=== PATIENT | female | born 2000 | race Two or more races ===

== ENCOUNTER 2023-11-03 04:56 | Emergency (ER) | payer SELFPAY ==
[2023-11-03] MEDS: Ondansetron 4 MG/2 ML SDV IVPUSH ONE (05:18)
[2023-11-03] MEDS: Sodium Chloride 0.9% 1,000 ML IV ONE ×2 (05:18→06:02)
[2023-11-03] MEDS: Morphine 4 MG/ML Syringe IVPUSH ONE (05:18)
[2023-11-03] MEDS: Famotidine 20 MG/2 ML SDV IVPUSH ONE (05:18)
[2023-11-03] MEDS: Sodium Chloride 0.9% 2.5 ML Syringe FLUSH PRN (05:19)
[2023-11-03] MEDS: Sodium Chloride 0.9% 10 ML Syringe FLUSH PRN (05:19)
[2023-11-03 05:25] LABS: HEMATOCRIT 39.6 % (37.0-47.0); HEMOGLOBIN 13.7 g/dL (12.0-16.0); MEAN CORPUSCULAR HGB CONC 34.6 g/dL (32.0-36.0); MEAN CORPUSCULAR VOLUME 83.9 fL (83.0-99.0); MEAN PLATELET VOLUME 10.2 fL (9.4-12.3); PLATELET COUNT,PLT 383 K/uL (150-400); RED BLOOD CELL COUNT 4.72 M/uL (4.10-5.30); WHITE BLOOD CELL COUNT,WBC 21.33 K/uL (3.9-11.3)
[2023-11-03 05:47] LABS: A/G RATIO 1.2 (0.9-1.6); ALBUMIN 4.5 g/dL (3.4-5.0); BILIRUBIN TOTAL 1.1 mg/dL (0.2-1.0); CALCIUM 9.8 mg/dL (8.5-10.1); CARBON DIOXIDE,CO2 24.4 mmol/L (21.0-32.0); CREATININE 1.1 mg/dL (0.6-1.0); EST CRCL DRUG DOSING (CG) 71.57 mL/min; LYMPHOCYTES ABSOLUTE MAN 2.13 K/uL (1.00-4.80); LYMPHOCYTES PERCENT MAN 10 % (24-44); MAGNESIUM 1.8 mg/dL (1.8-2.4); MONOCYTES ABSOLUTE MAN 1.49 K/uL (0.00-0.80); MONOCYTES PERCENT MAN 7 % (0-8); POTASSIUM,K 3.2 mmol/L (3.5-5.1); PROTEIN TOTAL,TP 8.4 g/dL (6.4-8.2); SEG NEUTROPHILS PERCENT MAN 83 % (41-71)
[2023-11-03 05:56] LABS: LACTIC ACID 2.2 mmol/L (0.4-2.0)
[2023-11-03] MEDS: cefTRIAXone 1 GM in Sodium Chloride 0.9% 50 ML IV ONE (06:03)
[2023-11-03 06:04] LABS: CORONAVIRUS COVID-19 NAA POSITIVE (NEGATIVE); INFLUENZA A NAA NEGATIVE (NEGATIVE); INFLUENZA B NAA NEGATIVE (NEGATIVE)
[2023-11-03 06:57] LABS: APPEARANCE,URINE HAZY; BILIRUBIN,URINE NEGATIVE (NEGATIVE); COLOR,URINE YELLOW; GLUCOSE,URINE NEGATIVE (NEGATIVE); KETONES,URINE >=80 mg/dL (NEGATIVE); LEUKOCYTE ESTERASE,URINE NEGATIVE (NEGATIVE); NITRITE,URINE NEGATIVE (NEGATIVE); OCCULT BLOOD,URINE NEGATIVE (NEGATIVE); PROTEIN,URINE NEGATIVE (NEGATIVE); UROBILINOGEN,URINE 0.2 EU/dL (<2.0)
[2023-11-03] MEDS: Magnesium Sulfate/Water 2 GM in Premix Bag 1 BAG IV ONE (07:11)
== END 2023-11-03 08:13 | disposition home or self-care (01) ==
LOC: MW.ED 04:56
DX: O98.511 Other viral diseases complicating pregnancy, first trimester (principal); U07.1 COVID-19; O21.0 Mild hyperemesis gravidarum; Z3A.01 Less than 8 weeks gestation of pregnancy
CPT/HCPCS: 0240U; 36415; 76801; 80053; 81003; 83605; 83690; 83735; 84702; 84703; 85025; 87040; 93005; 96361; 96365; 96367; 96375; 99284; J0696; J2270; J2405; J3475; J3490; J7030; 93010

== ENCOUNTER 2023-11-18 11:30 | Emergency (ER) | payer SELFPAY ==
[2023-11-18 12:03] LABS: BASOPHILS ABSOLUTE AUTO 0.07 K/uL (0.00-0.20); BASOPHILS PERCENT AUTO 0.4 % (0.0-1.0); EOSINOPHILS ABSOLUTE AUTO 0.02 K/uL (0.00-0.45); EOSINOPHILS PERCENT AUTO 0.1 % (0.0-6.0); HEMATOCRIT 41.5 % (37.0-47.0); IMMATURE GRAN ABSOLUTE AUTO 0.06 K/uL (0.00-0.05); IMMATURE GRAN PERCENT AUTO 0.3 % (0.0-0.4); LYMPHOCYTES ABSOLUTE AUTO 2.13 K/uL (1.00-4.80); LYMPHOCYTES PERCENT AUTO 12.2 % (24.0-44.0); MEAN CORPUSCULAR HEMOGLOBIN 29.5 pg (28.0-32.0); MEAN CORPUSCULAR HGB CONC 36.1 g/dL (32.0-36.0); MEAN CORPUSCULAR VOLUME 81.7 fL (83.0-99.0); MEAN PLATELET VOLUME 10.5 fL (9.4-12.3); MONOCYTES ABSOLUTE AUTO 1.18 K/uL (0.00-0.80); MONOCYTES PERCENT AUTO 6.8 % (0.0-8.0); NEUTROPHILS ABSOLUTE AUTO 13.97 K/uL (1.80-7.70); NEUTROPHILS PERCENT AUTO 80.2 % (41.0-71.0); PLATELET COUNT,PLT 309 K/uL (150-400); RED BLOOD CELL COUNT 5.08 M/uL (4.10-5.30); WHITE BLOOD CELL COUNT,WBC 17.43 K/uL (3.9-11.3)
[2023-11-18] MEDS: Metoclopramide 10 MG/2 ML SDV IVPUSH ONE (12:10)
[2023-11-18] MEDS: Dextrose 5%-0.9% NaCl 1,000 ML IV STA (12:10)
[2023-11-18 12:15] LABS: APPEARANCE,URINE SLT CLOUDY; COLOR,URINE YELLOW; GLUCOSE,URINE NEGATIVE (NEGATIVE); KETONES,URINE >=80 mg/dL (NEGATIVE); LEUKOCYTE ESTERASE,URINE NEGATIVE (NEGATIVE); NITRITE,URINE NEGATIVE (NEGATIVE); OCCULT BLOOD,URINE NEGATIVE (NEGATIVE); PROTEIN,URINE NEGATIVE (NEGATIVE); UROBILINOGEN,URINE 0.2 EU/dL (<2.0)
[2023-11-18 12:21] LABS: BILIRUBIN,URINE SMALL (NEGATIVE)
[2023-11-18 12:26] LABS: ALBUMIN 4.2 g/dL (3.4-5.0); BILIRUBIN TOTAL 0.8 mg/dL (0.2-1.0); CALCIUM 9.7 mg/dL (8.5-10.1); CARBON DIOXIDE,CO2 24.2 mmol/L (21.0-32.0); CREATININE 0.8 mg/dL (0.6-1.0); EST CRCL DRUG DOSING (CG) 98.41 mL/min; POTASSIUM,K 3.7 mmol/L (3.5-5.1); PROTEIN TOTAL,TP 8.2 g/dL (6.4-8.2)
[2023-11-18] MEDS: Dextrose 5%-Lactated Ringers 1,000 ML IV STA (12:56)
== END 2023-11-18 13:59 | disposition home or self-care (01) ==
LOC: MW.ED 11:30
DX: O21.0 Mild hyperemesis gravidarum (principal); Z3A.01 Less than 8 weeks gestation of pregnancy; Z75.8 Other problems related to medical facilities and other health care
CPT/HCPCS: 36415; 80053; 81003; 84702; 84703; 85025; 96361; 96374; 99284; J2765; J7042; J7121

== ENCOUNTER 2024-05-29 01:26 | Inpatient (IN) | payer MEDICAID ==
[2024-05-29] MEDS ORDERED: Ondansetron 4 MG/2 ML SDV IVPUSH PRN (02:19)
[2024-05-29] MEDS ORDERED: Butorphanol 2 MG/ML SDV IVPUSH PRN ×2 (02:26→02:35)
[2024-05-29] MEDS: Lactated Ringers 1,000 ML IV SCH (02:31)
[2024-05-29] MEDS ORDERED: Lidocaine 1% 50 ML MDV INJECT PRN (02:35)
[2024-05-29] MEDS ORDERED: Carboprost Tromethamine 250 MCG/1 mL Vial IM PRN (02:35)
[2024-05-29] MEDS ORDERED: Methylergonovine 0.2 MG/1 ML Amp IM PRN (02:35)
[2024-05-29] MEDS ORDERED: Water For Irrigation,Sterile 1,000 ML Container IRR PRN (02:35)
[2024-05-29] MEDS ORDERED: Sodium Chloride 0.9% 20 ML SDV IV PRN (02:35)
[2024-05-29] MEDS ORDERED: Sodium Chloride 0.9% 10 ML Syringe FLUSH PRN (02:35)
[2024-05-29] MEDS ORDERED: Sodium Chloride 0.9% 2.5 ML Syringe FLUSH PRN (02:35)
[2024-05-29] MEDS ORDERED: Misoprostol 200 MCG Tab PO PRN (02:35)
[2024-05-29] MEDS ORDERED: Ampicillin 2 GM in Sodium Chloride 0.9% 100 ML IV ONE (02:35)
[2024-05-29] MEDS ORDERED: Ampicillin 2 GM Vial ONE (02:36)
[2024-05-29] MEDS: Betamethasone Acetate/Betamethasone Sod Phosphate 6 MG/1 ML MDV IM ONE (02:43)
[2024-05-29] MEDS ORDERED: Lactated Ringers 1,000 ML IV SCH (02:45)
[2024-05-29] MEDS: Oxytocin/0.9 % Sodium Chloride 30 UNIT/500 ML BAG IV SCH (02:53)
[2024-05-29] MEDS ORDERED: Benzocaine/Menthol 20%-0.5% Spray 78 GM Cannister TOP PRN (03:22)
[2024-05-29] MEDS ORDERED: Lanolin 100% Cream 7 GM Tube TOP PRN (03:22)
[2024-05-29] MEDS ORDERED: Witch Hazel Medicated Pads 40/Jar TOP PRN (03:22)
[2024-05-29] MEDS ORDERED: Ibuprofen 800 MG Tab PO PRN (03:22)
[2024-05-29] MEDS ORDERED: Acetaminophen 500 MG Tab PO PRN (03:22)
[2024-05-29] MEDS ORDERED: oxyCODONE 5 MG Tab PO PRN (03:22)
[2024-05-29] MEDS ORDERED: Docusate Sodium 100 MG Cap PO PRN (03:22)
[2024-05-29 03:31] LABS: HEMATOCRIT 36.7 % (37.0-47.0); HEMOGLOBIN 12.4 g/dL (12.0-16.0); MEAN CORPUSCULAR HEMOGLOBIN 29.7 pg (28.0-32.0); MEAN CORPUSCULAR HGB CONC 33.8 g/dL (32.0-36.0); MEAN CORPUSCULAR VOLUME 87.8 fL (83.0-99.0); PLATELET COUNT,PLT 201 K/uL (150-400); RED BLOOD CELL COUNT 4.18 M/uL (4.10-5.30); WHITE BLOOD CELL COUNT,WBC 20.33 K/uL (3.9-11.3)
[2024-05-29 05:48] LABS: PH,UMBILICAL ARTERIAL 7.341 (7.18-7.38); PH,UMBILICAL VENOUS 7.365 (7.25-7.45)
[2024-05-30 05:32] LABS: HEMATOCRIT 35.1 % (37.0-47.0); HEMOGLOBIN 12.1 g/dL (12.0-16.0)
== END 2024-05-30 14:49 | disposition home or self-care (01) | DRG 807 ==
LOC: MW.OBCHECK 01:26 → MW.OB 01:28 → MW.OBCHECK 02:35 → OBSVTOIN 02:52 → MW.OB 05:18
PROVIDERS: ADMIT Obstetrics & Gynecology; ATTEND Obstetrics & Gynecology
PROC: 10E0XZZ Delivery of Products of Conception, External Approach (ICD-10-PCS; principal; 2024-05-29)
DX: O62.3 Precipitate labor (principal); Z37.0 Single live birth; Z3A.36 36 weeks gestation of pregnancy; O42.02 Full-term premature rupture of membranes, onset of labor within 24 hours of rupture
CPT/HCPCS: 36415; 59025; 59409; 82803; 85014; 85018; 85027; 86592; 86850; 86900; 86901; A9270-GY; J0290; J0702; J2590; J3490; J7120